=== PATIENT | female | born 1945 | race Caucasian/White ===

== ENCOUNTER → 2019-03-27 | Outpatient (CLI) | payer MEDICARE, OTHER | END | disposition home or self-care (01) | LOC: CFH 13:21 | PROVIDERS: ATTEND Family Medicine | DX: K80.20 Calculus of gallbladder without cholecystitis without obstruction (principal); N20.0 Calculus of kidney | CPT/HCPCS: 74176 ==

== ENCOUNTER → 2020-05-27 | Outpatient (CLI) | payer MEDICARE, OTHER ==
[~2020-05-27] MED LIST: ALEN70TA6 PO; BIOT5TAB PO; ESTR1TAB5 PO; FLUT16SP24 NS; HYDR25TA6 PO; Hydro Eye PO; LUTE1CAP PO; MELA10TA PO; MONT10TA11 PO; MULT-449 PO
== END | disposition home or self-care (01) ==
LOC: STAR 10:57
PROVIDERS: ATTEND Surgery
DX: Z01.812 Encounter for preprocedural laboratory examination (principal); K80.64 Calculus of gallbladder and bile duct with chronic cholecystitis without obstruction
CPT/HCPCS: 93005

== ENCOUNTER 2020-06-04 07:43 | Day surgery (SDC) | payer MEDICARE, OTHER ==
[~2020-06-04] VITALS: Ht 172.7 cm; Wt 65.9 kg
[~2020-06-04 07:43] MED LIST changes: +BUPIVACAINE/EPI 0.5% 1:200K ONE
[2020-06-04] MEDS ORDERED: SODIUM CHLORIDE 0.9% 1,000 ML IV SCH (08:22)
[2020-06-04 08:23] VITALS: BP 132/89
[2020-06-04] MEDS ORDERED: CHLORHEXIDINE 15 ML UDC MM ONE (08:30)
[2020-06-04] MEDS ORDERED: INDOCYANINE GREEN 25 MG VIAL ONE (08:32)
[2020-06-04] MEDS ORDERED: LACTATED RINGERS 1,000 ML IV SCH (08:52)
[2020-06-04] MEDS ORDERED: INDOCYANINE GREEN 25 MG VIAL IV ONE (09:00)
[2020-06-04] MEDS ORDERED: FENTANYL PF 250 MCG/5ML ONE (09:14)
[2020-06-04] MEDS ORDERED: MIDAZOLAM 1 MG/ML, 2ML ONE (09:14)
[2020-06-04] MEDS ORDERED: GLYCOPYRROLATE 0.2MG/1ML, 5ML ONE (09:46)
[2020-06-04] MEDS ORDERED: ONDANSETRON 2MG/ML, 2ML ONE (09:46)
[2020-06-04] MEDS ORDERED: CEFOTETAN 1 GM ONE (09:46)
[2020-06-04] MEDS ORDERED: DEXAMETHASONE 4 MG/ML, 1ML ONE (09:55)
[2020-06-04] MEDS ORDERED: ROCURONIUM 10MG/ML,5ML ONE (09:55)
[2020-06-04] MEDS ORDERED: SUCCINYLCHOLINE 20 MG/ML, 10ML ONE (09:55)
[2020-06-04] MEDS ORDERED: PROPOFOL 10 MG/ML, 20ML ONE (09:55)
[2020-06-04] MEDS ORDERED: DIPHENHYDRAMINE 50 MG/ML, 1ML IVPush PRN (10:30)
[2020-06-04] MEDS ORDERED: hydrALAzine 20 MG/ML, 1ML IV PRN (10:30)
[2020-06-04] MEDS ORDERED: PROMETHAZINE 12.5 MG SUPP PR PRN (10:30)
[2020-06-04] MEDS ORDERED: MEPERIDINE/PF 25MG/0.5ML IVPush PRN (10:30)
[2020-06-04] MEDS ORDERED: MIDAZOLAM 1 MG/ML, 2ML IV PRN (10:30)
[2020-06-04] MEDS ORDERED: OXYcodone 5 MG/5 ML ORAL.SOL UDC PO PRN (10:30)
[2020-06-04] MEDS ORDERED: ACETAMINOPHEN 325 MG TABLET PO PRN (10:30)
[2020-06-04] MEDS ORDERED: ONDANSETRON 2MG/ML, 2ML IVPush PRN (10:30)
[2020-06-04] MEDS ORDERED: ALBUTEROL SULFATE 2.5 MG/3 ML NPPB PRN (10:30)
[2020-06-04] MEDS ORDERED: PROMETHAZINE 25 MG/ML, 1ML IVPush PRN (10:30)
[2020-06-04] MEDS ORDERED: LABETALOL 5MG/ML, 20ML IV PRN (10:30)
[2020-06-04] MEDS ORDERED: DIAZEPAM 5 MG/ML, 2ML IVPush PRN (10:30)
[2020-06-04] MEDS ORDERED: HYDROmorphone 1 MG/ML, 1ML INJ IVPush PRN (10:30)
[2020-06-04] MEDS ORDERED: EPHEDRINE 50 MG/ML, 1ML IVPush PRN (10:30)
[2020-06-04] MEDS ORDERED: SUGAMMADEX 200 MG/2 ML IVPush ONE (10:38)
[2020-06-04] MEDS ORDERED: FENTANYL PF 100 MCG/2ML ONE ×2 (10:59→11:17)
[2020-06-04] MEDS: FENTANYL PF 100 MCG/2ML IV PRN ×3 (11:01→11:35)
[2020-06-04] MEDS ORDERED: OXYcodone 5 MG/5 ML ORAL.SOL UDC ONE (11:17)
[2020-06-04] MEDS ORDERED: ACETAMINOPHEN 650 MG/20.3 ML UDC ONE (11:17)
== END 2020-06-04 14:10 | disposition home or self-care (01) ==
LOC: OUT 07:43
PROVIDERS: ATTEND Surgery
DX: K80.12 Calculus of gallbladder with acute and chronic cholecystitis without obstruction (principal); Z11.59 Encounter for screening for other viral diseases; I10 Essential (primary) hypertension; M81.0 Age-related osteoporosis without current pathological fracture; Z88.8 Allergy status to other drugs, medicaments and biological substances; Z79.899 Other long term (current) drug therapy; Z98.890 Other specified postprocedural states; Z98.51 Tubal ligation status; Z72.89 Other problems related to lifestyle; Z87.891 Personal history of nicotine dependence; Z82.49 Family history of ischemic heart disease and other diseases of the circulatory system
CPT/HCPCS: 36415; 47563; 87635; 88304; J0330; J1100; J2250; J2405; J2704; J3010; J3490; J7120